=== PATIENT | female | born 1930 | race American Indian/Alaskan Native ===

== ENCOUNTER 2017-06-15 18:29 | Inpatient (IN) | payer MEDICARE ==
[2017-06-15] MEDS: D5NS 1,000 ML IV SCH (21:48)
[2017-06-15 22:15] LABS: Basophils % (Auto) 0.5 % (0.0-1.8); Eosinophils % (Auto) 0.4 % (0.0-4.3); Hematocrit 27.2 % (30.3-42.9); Hemoglobin 9.2 gm/dl (10.1-14.3); Lymphocytes # (Auto) 2.2 K/mm3 (1.2-5.4); Lymphocytes % (Auto) 28.5 % (13.4-35.0); Mean Corpuscular HGB Conc 34 % (30-34); Mean Corpuscular Hemoglobin 31 pg (28-32); Mean Corpuscular Volume 93 fl (79-97); Monocytes # (Auto) 0.7 K/mm3 (0.0-0.8); Monocytes % (Auto) 8.9 % (0.0-7.3); Platelet Count 167 K/mm3 (140-440); Red Blood Count 2.94 M/mm3 (3.65-5.03); Red Cell Distribution Width 14.8 % (13.2-15.2)
[2017-06-15] MEDS ORDERED: MEROPENEM 1000 MG IV SCH (22:15)
--- NOTE | 2017-06-15 22:15 | History and Physical Report ---
History of Present Illness Date of examination: 06/15/17 Date of admission: 06/15/17 18:51 Chief complaint: No Home health in place-unable to take care of the patient History of present illness: KALSKAG:Came back after discharge yesterday because home health was not in place and Daughter does not know how to do tube feedings and take care of sacral wounf including wound vac. Patient is a 87-year-old -[place] female with past medical history significant for strokes 3, hypertension, dementia presented to the emergency department with complaints of ulcer on the sacral area for the last 3-4 months. She took by mouth antibiotics without improvement. Patient has dementia and was not able to give history, history is obtained from her daughter who said the patient was complaining pain from the sacral area, couldn't characterize well. There is also offensive discharge from the wound. Denied fever, chills. 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 Patient was seen and started on emperic antibiotic coverage, WOUND care team saw the patient and discussed with the wound care surgeon who recommended patient be placed on a wound VAC. Wound culture grew ESBL, ID was consulted and they recommended - Wound cx + E coli, ESBL Proteus, MSSA. \Discharged on Merropenem and woung vac+Tube feedings Medications and Allergies Allergies Allergy/AdvReac Type Severity Reaction Status Date / Time Penicillins AdvReac Swelling Verified 06/06/17 21:38 Home Medications Medication Instructions Recorded Confirmed Last Taken Type Crestor 10 mg PO DAILY 06/06/17 06/06/17 Unknown History Klor-Con M10 10 mg PO DAILY 06/06/17 06/06/17 Unknown History Plavix 75 mg PO DAILY 06/06/17 06/06/17 Unknown History Rosuvastatin Calcium 10 mg PO DAILY 06/06/17 06/06/17 Unknown History amLODIPine 10 mg PO DAILY 06/06/17 06/06/17 Unknown History Meropenem [Merrem] 1,000 mg IV Q12HR 42 Days vial 06/13/17 Unknown Rx Active Meds: Active Medications Dextrose/Sodium Chloride (D5ns) 1,000 mls @ 100 mls/hr IV DIRECT [facility] Last Admin: 06/15/17 21:48 Dose: 100 mls/hr Review of Systems All systems: negative Constitutional: weakness, poor appetite, no weight loss, no weight gain, no fever, no chills, no sweats, no night sweats Ears, nose, mouth and throat: no hoarseness, no sore throat, no swelling in mouth Breasts: deferred Cardiovascular: no chest pain, no orthopnea, no palpitations, no rapid/ irregular heart beat, no edema, no syncope, no lightheadedness, no shortness of breath Respiratory: no cough, no cough with sputum, no excessive sputum, no hemoptysis , no shortness of breath, no dyspnea on exertion Gastrointestinal: no abdominal pain, no nausea, no vomiting, no diarrhea, no constipation, no change in bowel habits, no hematemesis, no coffee ground emesis Genitourinary Female: dysuria, urinary frequency, urgency, no pelvic pain Rectal: pain Musculoskeletal: no neck stiffness, no neck pain, no shooting arm pain, no arm numbness/tingling Integumentary: no rash, no pruritis, no redness, no sores Neurological: no seizures, no syncope Psychiatric: no anxiety, no memory loss Endocrine: no cold intolerance, no heat intolerance Hematologic/Lymphatic: no easy bruising, no easy bleeding Allergic/Immunologic: no urticaria, no allergic rhinitis, no wheezing Exam - Constitutional Vitals: Temp Pulse Resp BP Pulse Ox 98.5 F 86 137/73 99 06/15/17 20:27 06/15/17 20:27 06/15/17 20:34 06/15/17 20:27 - Cardiovascular Heart rate: 80 Rhythm: regular - Extremities Extremity abnormal: other (Shreyas stg 4 sacral decub ulcer with foul smelling discharge) Peripheral Pulses: within normal limits - Abdominal General gastrointestinal: Present: soft, non-tender, non-distended, normal bowel sounds - Rectal Rectal Exam: deferred - Integumentary Integumentary: Present: clear, warm, decreased turgor - Musculoskeletal Musculoskeletal: strength equal bilaterally, other (Rt AKA) Results - Labs CBC & Chem 7: 06/16/17 04:00 06/15/17 Unknown Assessment and Plan Assessment and plan: 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 * Wound cx + E coli, ESBL Proteus, MSSA * started merropenem, stopped Vancomyin * PICCWound cx + E coli, ESBL Proteus, MSSA * Placed Wound vac placement. * To make sure home health is in place and functioning after discharge this time UTI * Wound cx + E coli, ESBL Proteus, MSSA * Now on Merrem Hypertension * Blood Pressure is marginally low and held her blood pressure medication Hyperlipidemia * Continue rosuvastatin Moderate Malnutrition * Nutrition consulted * Peg tube, done and patient tolerating peg tube feedings Hypokalemia * Replace and check magnesium Complete immobility due to frailty/right AKA * Fall precautions Flaccid right upper extremity-right hemiparesis * No evidence of fracture * * Hypernatremia IV 1/2 NS DVT prophylxis Advance Directives: Yes (Full code) VTE prophylaxis?: Chemical Plan of care discussed with patient/family: Yes
[2017-06-15] MEDS ORDERED: PERCOCET 5/325 PO PRN (22:16)
[2017-06-15] MEDS ORDERED: DULCOLAX PR PRN (22:16)
[2017-06-15] MEDS ORDERED: DILAUDID IV PRN (22:16)
[2017-06-15] MEDS ORDERED: ZOFRAN IV PRN (22:16)
[2017-06-15] MEDS ORDERED: MILK OF MAGNESIA PO PRN (22:16)
[2017-06-15 22:36] LABS: Alanine Aminotransferase 18 units/L (7-56); Albumin 2.7 g/dL (3.9-5); BUN/Creatinine Ratio 37; Blood Urea Nitrogen 11 mg/dL (7-17); Calcium 7.6 mg/dL (8.4-10.2); Hemolysis Index 3
[2017-06-15] MEDS ORDERED: PEPCID IV SCH (23:00)
[2017-06-16 04:41] LABS: Basophils # (Auto) 0.1 K/mm3 (0.0-0.1); Basophils % (Auto) 1.5 % (0.0-1.8); Eosinophils # (Auto) 0.1 K/mm3 (0.0-0.4); Eosinophils % (Auto) 1.7 % (0.0-4.3); Hematocrit 23.8 % (30.3-42.9); Lymphocytes # (Auto) 2.1 K/mm3 (1.2-5.4); Lymphocytes % (Auto) 36.2 % (13.4-35.0); Mean Corpuscular HGB Conc 34 % (30-34); Mean Corpuscular Hemoglobin 31 pg (28-32); Mean Corpuscular Volume 92 fl (79-97); Monocytes # (Auto) 0.7 K/mm3 (0.0-0.8); Monocytes % (Auto) 11.3 % (0.0-7.3); Platelet Count 155 K/mm3 (140-440); Red Blood Count 2.58 M/mm3 (3.65-5.03); Red Cell Distribution Width 14.7 % (13.2-15.2)
[2017-06-16] MEDS: PEPCID IV SCH ×2 (05:40→10:13)
[2017-06-16] MEDS: MERREM 1,000 MG in NACL 0.9% 100 ML IV SCH ×3 (05:41→22:00)
--- NOTE | 2017-06-16 08:49 | Progress Note ---
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 * Wound cx + E coli, ESBL Proteus, MSSA * started merropenem, stopped Vancomyin * PICCWound cx + E coli, ESBL Proteus, MSSA * Placed Wound vac placement. * To make sure home health is in place and functioning after discharge this time UTI * Wound cx + E coli, ESBL Proteus, MSSA * Now on Merrem Hypertension * Blood Pressure is marginally low and held her blood pressure medication Hyperlipidemia * Continue rosuvastatin Moderate Malnutrition * Nutrition consulted * Peg tube, done and patient tolerating peg tube feedings Hypokalemia * Replace and check magnesium Complete immobility due to frailty/right AKA * Fall precautions Flaccid right upper extremity-right hemiparesis * No evidence of fracture * * Hypernatremia IV 1/2 NS DVT prophylxis Subjective Date of service: 06/16/17 Principal diagnosis: Osteomyelitis, UTI, oropharyngeal dysphagia Interval history: Patient is seen and examined. They quietly in bed. No new complaints. Discussed with patient's nurse Objective - Exam Narrative Exam: Constitutional: Well-nourished well-developed. In no distress Head: Normocephalic atraumatic Eyes: Pupils are equal round and reactive to light Nose: No enlarged turbinates, no septal deviation. Mouth: Moist mucous membranes. Neck: Supple no thyromegaly. No bruit. No JVD Heart: Regular rate and rhythm, S1-S2 abnormal. No rubs murmurs or gallop Lungs: Clear to auscultation bilaterally no rales or rhonchi Abdomen: Soft, nontender. PEG tube in place. Bowel sound are present. Extremities: No edema no cyanosis and no clubbing. Neuro: Alert oriented Oriented x3. No focal sensory or motor deficit. Skin: Has a psychological has also Psychiatry: Euthymic. Calm. - Constitutional Vitals: Vital Signs - 12hr 06/16/17 07:06 Temperature 98.3 F Pulse Rate 81 Blood Pressure 138/75 [Right] General appearance: Present: no acute distress, well-nourished - EENT Eyes: PERRL, EOM intact - Neck Neck: supple, normal ROM - Respiratory Respiratory effort: normal Respiratory: bilateral: CTA - Cardiovascular Rhythm: regular Heart Sounds: Present: S1 & S2. Absent: gallop, rub Extremities: pulses intact, No edema, normal color, Full ROM - Gastrointestinal General gastrointestinal: Present: soft, non-tender, non-distended, normal bowel sounds - Genitourinary Female genitourinary: normal - Integumentary Integumentary: clear, warm, dry - Musculoskeletal Musculoskeletal: 1, strength equal bilaterally - Neurologic Neurologic: moves all extremities - Psychiatric Psychiatric: appropriate mood/affect, intact judgment & insight - Labs CBC & Chem 7: 06/16/17 04:00 06/15/17 Unknown Labs: Abnormal lab results 06/15/17 06/15/17 06/16/17 Range/Units Unknown Unknown 04:00 RBC 2.94 L 2.58 L (3.65-5.03) M/mm3 Hgb 9.2 L 8.0 L (10.1-14.3) gm/dl Hct 27.2 L 23.8 L (30.3-42.9) % Lymph % (Auto) 36.2 H (13.4-35.0) % [place] % (Auto) 8.9 H 11.3 H (0.0-7.3) % Sodium 146 H (137-145) mmol/L Potassium 3.5 L (3.6-5.0) mmol/L Creatinine 0.3 L (0.7-1.2) mg/dL Calcium 7.6 L (8.4-10.2) mg/dL Total Protein 4.7 L (6.3-8.2) g/dL Albumin 2.7 L (3.9-5) g/dL
[2017-06-16] MEDS ORDERED: SODIUM BICARBONATE FEEDTUBE PRN (09:53)
[2017-06-16] MEDS ORDERED: SIMPLE SYRUP FEEDTUBE PRN ×2 (09:53)
[2017-06-16] MEDS ORDERED: PANCREAZE DR 10,500 UNIT FEEDTUBE PRN (09:53)
[2017-06-16] MEDS ORDERED: NON-FORMULARY (Amlodipine 10 MG) PO SCH (10:00)
[2017-06-16] MEDS ORDERED: NON-FORMULARY (Plavix 75 MG) PO SCH (10:00)
[2017-06-16] MEDS: D5NS 1,000 ML IV SCH ×2 (10:13→22:00)
[2017-06-16] MEDS: NORVASC PO SCH (10:13)
[2017-06-16] MEDS: PLAVIX PO SCH (10:13)
--- NOTE | 2017-06-16 16:59 | Consultation ---
History of Present Illness - Reason for Consult Consult date: 06/16/17 stage IV sacral ulcer with osteomyelitis Requesting physician: MADY CHTAMAN - History of Present Illness 87 years old female with history of CVA 3 with right residual hemiplegia, hypertension, dementia, well known to ID due to recent admission found to have sacral osteomyelitis; admitted on 06/06/17-06/14/17 due to non healing sacral decubitus for 3-4 months. She took oral antibiotics without improvement. Patient has dementia and was not able to give history, history is obtained from her daughter who said the patient was complaining pain from the sacral area. 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 Initial white count 10.7. Hemoglobin 9.8. Platelets 237. Urinalysis showed 54 white blood cell without leukocyte esterase. CT of the abdomen show a dilated common bile duct. Wound care evaluated noted 6x4.5x1.5 cm wound with foul-smelling drainage. Evaluated by surgery. No surgical intervation, a wound VAC was placed. On 06/06 wound cx grew E coli, CHANGE MANAGEMENT ANALYST Proteus, MSSA. Patient was treated with meropenem. Pt readmitted on 06/15 in view of lack of family education for home health-home health was not in place and Daughter does not know how to do tube feedings and take care of sacral wound including wound vac. She had PEG placed on 06/14 and a low grade fever after PEG. No fever since then. Microbiology: Wound cultures: 06/06 E coli, CHANGE MANAGEMENT ANALYST Proteus, MSSA Current Antimicrobials: meropenem 06/11 Previous Antimicrobials: vanco levaquin Past History Past Medical History: other (dementia, sacral osteo, ) Past Surgical History: Other (right AKA) Social history: no significant social history, lives with family Family history: no significant family history Medications and Allergies Allergies Allergy/AdvReac Type Severity Reaction Status Date / Time Penicillins AdvReac Swelling Verified 06/06/17 21:38 Home Medications Medication Instructions Recorded Confirmed Last Taken Type Crestor 10 mg PO DAILY 06/06/17 06/06/17 Unknown History Klor-Con M10 10 mg PO DAILY 06/06/17 06/06/17 Unknown History Plavix 75 mg PO DAILY 06/06/17 06/06/17 Unknown History Rosuvastatin Calcium 10 mg PO DAILY 06/06/17 06/06/17 Unknown History amLODIPine 10 mg PO DAILY 06/06/17 06/06/17 Unknown History Meropenem [Merrem] 1,000 mg IV Q12HR 42 Days vial 06/13/17 Unknown Rx Active Meds: Active Medications Acetaminophen (Tylenol) 650 mg PO Q4H PRN PRN Reason: Pain MILD(1-3)/Fever >100.5/QUINTERO Amlodipine Besylate (Norvasc) 10 mg PO DAILY [facility] Last Admin: 06/16/17 10:13 Dose: 10 mg Lipase/Protease/Amylase (Pancreaze Dr 10,500 Unit) 1 each FEEDTUBE PRN PRN PRN Reason: For Clogged Feeding Tube Bisacodyl (Dulcolax) 10 mg CO QDAY PRN PRN Reason: Constipation unrelieved by MOM Clopidogrel Bisulfate (Plavix) 75 mg PO QDAY [facility] Last Admin: 06/16/17 10:13 Dose: 75 mg Famotidine (Pepcid) 20 mg IV DAILY [facility] Last Admin: 06/16/17 10:13 Dose: 20 mg Hydromorphone HCl (Dilaudid) 0.5 mg IV Q3H PRN PRN Reason: Pain , Severe (7-10) Dextrose/Sodium Chloride (D5ns) 1,000 mls @ 100 mls/hr IV DIRECT [facility] Last Admin: 06/16/17 10:13 Dose: 100 mls/hr Meropenem 1,000 mg/ Sodium (Chloride) 100 mls @ 100 mls/hr IV Q12HR [facility] Last Admin: 06/16/17 10:54 Dose: 100 mls/hr Magnesium Hydroxide (Milk Of Magnesia) 30 ml PO Q4H PRN PRN Reason: Constipation Morphine Sulfate (Morphine) 2 mg IV Q4H PRN PRN Reason: Pain, Moderate (4-6) Ondansetron HCl (Zofran) 4 mg IV Q8H PRN PRN Reason: N/V unrelieved by Reglan Oxycodone/Acetaminophen (Percocet 5/325) 1 tab PO Q6H PRN PRN Reason: Pain, Moderate (4-6) Potassium Chloride (K-Dur) 40 meq PO ONCE ONE Stop: 06/16/17 16:52 Simple Syrup (Simple Syrup) 15 ml FEEDTUBE PRN PRN PRN Reason: Hypoglycemia Simple Syrup (Simple Syrup) 30 ml FEEDTUBE PRN PRN PRN Reason: Hypoglycemia Sodium Bicarbonate (Sodium Bicarbonate) 325 mg FEEDTUBE PRN PRN PRN Reason: For Clogged Feeding Tube Review of Systems ROS unobtainable: due to mental status Physical Examination - Physical Exam Narrative exam: General appearance: Alert in NAD Eyes: anicteric sclerae, moist conjunctivae; no lid-lag; PERRLA HENT: Atraumatic; oropharynx clear Neck: Trachea midline Lungs: CTA CV: RRR, no murmurs Abdomen: Soft, non-tender;+PEG Extremities: right AKA Skin: stage IV sacral with foul smelling, right toe superficial sores no purulence Psych: non verbal. Neuro: alert non verbal +right hemiplegia Lines: left PICC - Constitutional Vitals: Vital Signs Temp Pulse Resp BP Pulse Ox 98.5 F 74 20 116/53 97 06/16/17 08:06 06/16/17 10:13 06/16/17 08:06 06/16/17 10:13 06/16/17 08:06 Temperature -Last 24 Hours Temperature 98.5 F Temperature 98.3 F Temperature 98.5 F Results - Labs CBC & Chem 7: 06/16/17 04:00 06/15/17 Unknown Labs: Abnormal lab results 06/15/17 06/15/17 06/16/17 Range/Units Unknown Unknown 04:00 RBC 2.94 L 2.58 L (3.65-5.03) M/mm3 Hgb 9.2 L 8.0 L (10.1-14.3) gm/dl Hct 27.2 L 23.8 L (30.3-42.9) % Lymph % (Auto) 36.2 H (13.4-35.0) % [place] % (Auto) 8.9 H 11.3 H (0.0-7.3) % Sodium 146 H (137-145) mmol/L Potassium 3.5 L (3.6-5.0) mmol/L Creatinine 0.3 L (0.7-1.2) mg/dL POC Glucose (70-105) Calcium 7.6 L (8.4-10.2) mg/dL Total Protein 4.7 L (6.3-8.2) g/dL Albumin 2.7 L (3.9-5) g/dL 06/16/17 Range/Units 11:40 RBC (3.65-5.03) M/mm3 Hgb (10.1-14.3) gm/dl Hct (30.3-42.9) % Lymph % (Auto) (13.4-35.0) % [place] % (Auto) (0.0-7.3) % Sodium (137-145) mmol/L Potassium (3.6-5.0) mmol/L Creatinine (0.7-1.2) mg/dL POC Glucose 106 H (70-105) Calcium (8.4-10.2) mg/dL Total Protein (6.3-8.2) g/dL Albumin (3.9-5) g/dL Assessment and Plan Assessment: 1) 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 7) Dysphagia s/p PEG placement Plan: -continue meropenem - close monitor -contact isolation -Continue ertapenem 1 g iv daily for 6 weeks until 07/23 via codie alaniz/Vidal -wound consult will sign off Marisa Martel
[2017-06-16] MEDS ORDERED: K-DUR PO ONE (18:00)
[2017-06-17 04:24] LABS: Basophils # (Auto) 0.1 K/mm3 (0.0-0.1); Basophils % (Auto) 0.9 % (0.0-1.8); Eosinophils # (Auto) 0.1 K/mm3 (0.0-0.4); Eosinophils % (Auto) 1.6 % (0.0-4.3); Hemoglobin 9.4 gm/dl (10.1-14.3); Lymphocytes # (Auto) 2.4 K/mm3 (1.2-5.4); Lymphocytes % (Auto) 39.3 % (13.4-35.0); Mean Corpuscular HGB Conc 34 % (30-34); Mean Corpuscular Hemoglobin 31 pg (28-32); Mean Corpuscular Volume 93 fl (79-97); Monocytes # (Auto) 0.6 K/mm3 (0.0-0.8); Platelet Count 176 K/mm3 (140-440); Red Blood Count 3.02 M/mm3 (3.65-5.03); Red Cell Distribution Width 14.9 % (13.2-15.2)
[2017-06-17 06:29] LABS: Alanine Aminotransferase 16 units/L (7-56); Albumin 2.5 g/dL (3.9-5); BUN/Creatinine Ratio 27; Blood Urea Nitrogen 8 mg/dL (7-17); Calcium 8.4 mg/dL (8.4-10.2); Hemolysis Index 36
[2017-06-17] MEDS: MERREM 1,000 MG in NACL 0.9% 100 ML IV SCH ×2 (10:52→21:42)
[2017-06-17] MEDS: NORVASC PO SCH (10:53)
[2017-06-17] MEDS: PLAVIX PO SCH (10:53)
[2017-06-17] MEDS: PEPCID IV SCH (11:25)
--- NOTE | 2017-06-17 11:43 | Progress Note ---
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 * Wound cx + E coli, ESBL Proteus, MSSA * started merropenem, stopped Vancomyin * PICCWound cx + E coli, ESBL Proteus, MSSA * Placed Wound vac placement. * To make sure home health is in place and functioning after discharge this time UTI * Wound cx + E coli, ESBL Proteus, MSSA * Now on Merrem Hypertension * Blood Pressure is marginally low and held her blood pressure medication Hyperlipidemia * Continue rosuvastatin Moderate Malnutrition * Nutrition consulted * Peg tube, done and patient tolerating peg tube feedings Hypokalemia * Replace and check magnesium Complete immobility due to frailty/right AKA * Fall precautions Flaccid right upper extremity-right hemiparesis * No evidence of fracture * * Hypernatremia IV 1/2 NS DVT prophylxis with lovenox Discussed with pt's daughter who is concerned about placement Subjective Date of service: 06/17/17 Principal diagnosis: Osteomyelitis, UTI, oropharyngeal dysphagia Interval history: Patient is seen and examined. They quietly in bed. No new complaints. Discussed with patient's nurse. Objective - Exam Narrative Exam: Constitutional: Minimally verbal Head: Normocephalic atraumatic Eyes: Pupils are equal round and reactive to light Nose: No enlarged turbinates, no septal deviation. Mouth: Moist mucous membranes. Neck: Supple no thyromegaly. No bruit. No JVD Heart: Regular rate and rhythm, S1-S2 abnormal. No rubs murmurs or gallop Lungs: Clear to auscultation bilaterally no rales or rhonchi Abdomen: Soft, nontender. PEG tube in place. Bowel sound are present. Extremities: No edema no cyanosis and no clubbing. Neuro: Alert oriented Oriented x1. . Skin: Has a sacral decubitous ulcer Psychiatry: Euthymic. Calm. - Constitutional Vitals: Vital Signs - 12hr 06/17/17 06/17/17 09:16 10:53 Temperature 98.7 F Pulse Rate 72 72 Respiratory 18 Rate Blood Pressure 115/46 115/46 O2 Sat by Pulse 98 Oximetry - Labs CBC & Chem 7: 06/17/17 04:12 06/17/17 04:12 Labs: Abnormal lab results 0206/16/17 06/17/17 Range/Units 11:40 18:22 01:16 RBC (3.65-5.03) M/mm3 Hgb (10.1-14.3) gm/dl Hct (30.3-42.9) % Lymph % (Auto) (13.4-35.0) % [place] % (Auto) (0.0-7.3) % Sodium (137-145) mmol/L Chloride (98-107) mmol/L Creatinine (0.7-1.2) mg/dL Glucose (65-100) mg/dL POC Glucose 106 H 126 H 139 H (70-105) Total Protein (6.3-8.2) g/dL Albumin (3.9-5) g/dL 06/17/17 06/17/17 06/17/17 Range/Units 04:12 04:12 05:37 RBC 3.02 L (3.65-5.03) M/mm3 Hgb 9.4 L (10.1-14.3) gm/dl Hct 28.0 L (30.3-42.9) % Lymph % (Auto) 39.3 H (13.4-35.0) % [place] % (Auto) 10.0 H (0.0-7.3) % Sodium 146 H (137-145) mmol/L Chloride 109.6 H (98-107) mmol/L Creatinine 0.3 L (0.7-1.2) mg/dL Glucose 152 H (65-100) mg/dL POC Glucose 139 H (70-105) Total Protein 5.0 L (6.3-8.2) g/dL Albumin 2.5 L (3.9-5) g/dL
[2017-06-17] MEDS: D5NS 1,000 ML IV SCH (15:00)
[2017-06-18] MEDS: D5NS 1,000 ML IV SCH ×2 (01:14→20:02)
[2017-06-18 05:10] LABS: Basophils % (Auto) 0.5 % (0.0-1.8); Eosinophils # (Auto) 0.1 K/mm3 (0.0-0.4); Eosinophils % (Auto) 1.8 % (0.0-4.3); Hematocrit 26.9 % (30.3-42.9); Hemoglobin 9.2 gm/dl (10.1-14.3); Lymphocytes # (Auto) 2.3 K/mm3 (1.2-5.4); Mean Corpuscular HGB Conc 34 % (30-34); Mean Corpuscular Hemoglobin 31 pg (28-32); Mean Corpuscular Volume 92 fl (79-97); Monocytes # (Auto) 0.7 K/mm3 (0.0-0.8); Platelet Count 177 K/mm3 (140-440); Red Blood Count 2.94 M/mm3 (3.65-5.03); Red Cell Distribution Width 14.8 % (13.2-15.2)
[2017-06-18 05:30] LABS: Alanine Aminotransferase 14 units/L (7-56); Albumin 2.4 g/dL (3.9-5); BUN/Creatinine Ratio 33; Blood Urea Nitrogen 10 mg/dL (7-17); Calcium 8.3 mg/dL (8.4-10.2); Hemolysis Index 2
--- NOTE | 2017-06-18 07:41 | Progress Note ---
Assessment and Plan Assessment and plan: 87 years old female with history of CVA 3 with right residual hemiplegia, hypertension, dementia, recently discharged from the hospital after an admission for sacral osteomyelitis on 06/06/17-06/14/17 due to non healing sacral decubitus for 3-4 months. She had taken oral antibiotics without improvement. Patient has dementia and was not able to give history, history is obtained from her daughter who said the patient was complaining pain from the sacral area. 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 Wound care evaluated noted 6x4.5x1.5 cm wound with foul-smelling drainage. Evaluated by surgery. No surgical intervation, a wound VAC was placed. On 06/06 wound cx grew E coli, DRESSING ROOM PORTER Proteus, MSSA. Patient was treated with meropenem. Pt readmitted on 06/15 in view of lack of family education for home health-home health was not in place and Daughter does not know how to do tube feedings and take care of sacral wound including wound vac. According to case management documentation the patient's daughter refused home health from coming into her home She had PEG placed on 06/14 and a low grade fever after PEG. 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 * S/P bedside debridement. Wound cx + E coli, DRESSING ROOM PORTER Proteus, MSSA * Continue merropenem, - * Wound Vac in Place, Picc Line placed 06/11 * Isolation Hypertension * Blood Pressure is marginally low and held her blood pressure medication Hyperlipidemia * Continue rosuvastatin Severe Protien Calorie Malnutrition * Nutrition consulted * Peg tube, done and patient tolerating peg tube feedings Hypokalemia * Replace and check magnesium Complete immobility due to frailty/right AKA * Fall precautions Flaccid right upper extremity-right hemiparesis Hx of CVA X3 * No evidence of fracture Dysphagia * S/P PEG placement Hypernatremia * Free water DVT prophylxis with lovenox Speech eval in a.m. Await home health physician prior to discharge. Plan of care discussed in detail with the daughter. History Interval history: Patient seen and examined and noted to distress resting comfortably dissected bedside. Still awaiting decision about home health. Hospitalist Physical - Physical exam Narrative exam: Narrative exam: VITAL SIGNS: Reviewed. GENERAL: The patient appeared well-developed otherwise chronically ill appearing. vital signs as documented. HEAD: No signs of head trauma. EYES: Pupils are equal. Extraocular motions intact. EARS: Hearing grossly intact. MOUTH: Oropharynx is normal. NECK: No adenopathy, no JVD. CHEST: Chest with clear breath sounds bilaterally. No wheezes, rales, or rhonchi. CARDIAC: Regular rate and rhythm. S1 and S2, without murmurs, gallops, or rubs. VASCULAR: Peripheral pulses normal and equal in all extremities. ABDOMEN: Soft, without detectable tenderness. PEG tube in place no tenderness at site. No sign of distention. No rebound or guarding, and no masses palpated. Bowel Sounds normal. MUSCULOSKELETAL: Limited range of motion on the right upper extremity flaccid in appearance. Extremities without clubbing, cyanosis. Trace edema on the upper extremity.right toe superficial sores no purulence NEUROLOGIC EXAM: Alert oriented to person self. Right hemiparesis. Very muffled speech chronic. Follows some commands. PSYCHIATRIC: Mood normal. SKIN: Sacral pressure ulcer stage 4 with bone exposure- WOUND VAC IN PLACE. Left PICC line in place - Constitutional Vitals: Temp Pulse Resp BP Pulse Ox 99.0 F 78 21 108/51 97 06/17/17 19:53 06/17/17 19:53 06/17/17 22:00 06/17/17 19:53 06/17/17 22:00 General appearance: Present: no acute distress, well-nourished Results - Labs CBC & Chem 7: 06/18/17 04:50 06/18/17 04:50 Labs: Laboratory Last Values WBC 6.3 K/mm3 (4.5-11.0) 06/18/17 04:50 RBC 2.94 M/mm3 (3.65-5.03) L 06/18/17 04:50 Hgb 9.2 gm/dl (10.1-14.3) L 06/18/17 04:50 Hct 26.9 % (30.3-42.9) L 06/18/17 04:50 MCV 92 fl (79-97) 06/18/17 04:50 MCH 31 pg (28-32) 06/18/17 04:50 MCHC 34 % (30-34) 06/18/17 04:50 RDW 14.8 % (13.2-15.2) 06/18/17 04:50 Plt Count 177 K/mm3 (140-440) 06/18/17 04:50 Lymph % (Auto) 36.0 % (13.4-35.0) H 06/18/17 04:50 [place] % (Auto) 11.0 % (0.0-7.3) H 06/18/17 04:50 Eos % (Auto) 1.8 % (0.0-4.3) 06/18/17 04:50 Baso % (Auto) 0.5 % (0.0-1.8) 06/18/17 04:50 Lymph # 2.3 K/mm3 (1.2-5.4) 06/18/17 04:50 [place] # 0.7 K/mm3 (0.0-0.8) 06/18/17 04:50 Eos # 0.1 K/mm3 (0.0-0.4) 06/18/17 04:50 Baso # 0.0 K/mm3 (0.0-0.1) 06/18/17 04:50 Seg Neutrophils % 50.7 % (40.0-70.0) 06/18/17 04:50 Seg Neutrophils # 3.2 K/mm3 (1.8-7.7) 06/18/17 04:50 Sodium 147 mmol/L (137-145) H 06/18/17 04:50 Potassium 3.9 mmol/L (3.6-5.0) 06/18/17 04:50 Chloride 109.4 mmol/L (98-107) H 06/18/17 04:50 Carbon Dioxide 27 mmol/L (22-30) 06/18/17 04:50 Anion Gap 15 mmol/L 06/18/17 04:50 BUN 10 mg/dL (7-17) 06/18/17 04:50 Creatinine 0.3 mg/dL (0.7-1.2) L 06/18/17 04:50 Estimated GFR > 60 ml/min 06/18/17 04:50 BUN/Creatinine Ratio 33 % 06/18/17 04:50 Glucose 133 mg/dL (65-100) H 06/18/17 04:50 POC Glucose 142 (70-105) H 06/18/17 06:07 Hemoglobin A1c 4.9 % (4-6) 06/15/17 Unknown Calcium 8.3 mg/dL (8.4-10.2) L 06/18/17 04:50 Total Bilirubin 0.20 mg/dL (0.1-1.2) 06/18/17 04:50 AST 19 units/L (5-40) 06/18/17 04:50 ALT 14 units/L (7-56) 06/18/17 04:50 Alkaline Phosphatase 58 units/L (35-129) 06/18/17 04:50 Total Protein 4.8 g/dL (6.3-8.2) L 06/18/17 04:50 Albumin 2.4 g/dL (3.9-5) L 06/18/17 04:50 Albumin/Globulin Ratio 1.0 % 06/18/17 04:50
--- NOTE | 2017-06-18 07:56 | Discharge Summary ---
Providers - Providers Date of Admission: 06/15/17 18:51 Attending physician: GAVIN PERDOMO MD 06/15/17 22:16 Consult to Physician [CONS] Routine Consulting Provider: JENN SARAVIA Reason For Exam: Sacral decubitus ulcer Place consult to:: dr. shirley Notified:: yes Phone number called:: [phone] If yes, spoke with:: answering machine Time called:: 08:39 Comment:: vanita/ left message 06/15/17 22:21 Consult to Case Management [CONS] Routine Services Needed at Discharge: Home Health Services Social Worker Assistant Notified:: franci Time called:: 09:26 Comment:: vanita Consult to Dietitian/Nutrition [CONS] Routine Physician Instructions: Reason For Exam: pEG TUBE FEEDING Reason for Consult: Pt needs oral supplement Consult to Wound/ET Nurse [CONS] Routine Reason For Exam: wound eval Primary care physician: LINDSEY SHAW Hospitalization Reason for admission: sepsis Hospital course: 87 years old female with history of CVA 3 with right residual hemiplegia, hypertension, dementia, recently discharged from the hospital after an admission for sacral osteomyelitis on 06/06/17-06/14/17 due to non healing sacral decubitus for 3-4 months. She had taken oral antibiotics without improvement. Patient has dementia and was not able to give history, history is obtained from her daughter who said the patient was complaining pain from the sacral area. 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 Wound care evaluated noted 6x4.5x1.5 cm wound with foul-smelling drainage. Evaluated by surgery. No surgical intervation, a wound VAC was placed. On 06/06 wound cx grew E coli, ARCHITECTURAL JOB CAPTAIN Proteus, MSSA. Patient was treated with meropenem. Pt readmitted on 06/15 in view of lack of family education for home health-home health was not in place and Daughter does not know how to do tube feedings and take care of sacral wound including wound vac. According to case management documentation the patient's daughter refused home health from coming into her home She had PEG placed on 06/14 and a low grade fever after PEG. 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 * S/P bedside debridement. Wound cx + E coli, ARCHITECTURAL JOB CAPTAIN Proteus, MSSA * Continue merropenem, - * Wound Vac in Place, Picc Line placed 06/11 * Isolation Hypertension * Blood Pressure is marginally low and held her blood pressure medication Hyperlipidemia * Continue rosuvastatin Severe Protien Calorie Malnutrition * Nutrition consulted * Peg tube, done and patient tolerating peg tube feedings Hypokalemia * Replace and check magnesium Complete immobility due to frailty/right AKA * Fall precautions Flaccid right upper extremity-right hemiparesis Hx of CVA X3 * No evidence of fracture Dysphagia * S/P PEG placement Hypernatremia * Free water Will discharge once patients family are comfortable with home health, otherwise placement is appropriate. Core Measure Documentation - Palliative Care Palliative Care/ Comfort Measures: Not Applicable - Core Measures Any of the following diagnoses?: none - VTE Discharge Requirements Deep Vein Thrombosis/Pulmonary Embolism Present on Admission: No Exam - Physical Exam Narrative exam: Narrative exam: VITAL SIGNS: Reviewed. GENERAL: The patient appeared well-developed otherwise chronically ill appearing. vital signs as documented. HEAD: No signs of head trauma. EYES: Pupils are equal. Extraocular motions intact. EARS: Hearing grossly intact. MOUTH: Oropharynx is normal. NECK: No adenopathy, no JVD. CHEST: Chest with clear breath sounds bilaterally. No wheezes, rales, or rhonchi. CARDIAC: Regular rate and rhythm. S1 and S2, without murmurs, gallops, or rubs. VASCULAR: Peripheral pulses normal and equal in all extremities. ABDOMEN: Soft, without detectable tenderness. PEG tube in place no tenderness at site. No sign of distention. No rebound or guarding, and no masses palpated. Bowel Sounds normal. MUSCULOSKELETAL: Limited range of motion on the right upper extremity flaccid in appearance. Extremities without clubbing, cyanosis. Trace edema on the upper extremity.right toe superficial sores no purulence NEUROLOGIC EXAM: Alert oriented to person self. Right hemiparesis. Very muffled speech chronic. Follows some commands. PSYCHIATRIC: Mood normal. SKIN: Sacral pressure ulcer stage 4 with bone exposure- WOUND VAC IN PLACE. Left PICC line in place - Constitutional Vitals: Temp Pulse Resp BP Pulse Ox 99.0 F 78 21 108/51 97 06/17/17 19:53 06/17/17 19:53 06/17/17 22:00 06/17/17 19:53 06/17/17 22:00 Plan Activity: advance as tolerated, fall precautions Diet: per dietitian instruction Special Instructions: record daily BP diary, record blood sugar diary, smoking cessation Follow up with: LINDSEY SHAW MD [Primary Care Provider] - 7 Days JENN SARAVIA MD [Staff Physician] - 7 Days Prescriptions: Morphine Concentrate [Roxanol Concentrate] 10 mg PO Q6H PRN 3 Days oralsyr PRN Reason: Pain
[2017-06-18] MEDS: PEPCID PO SCH (10:59)
[2017-06-18] MEDS: PLAVIX PO SCH (10:59)
[2017-06-18] MEDS: NORVASC PO SCH (10:59)
[2017-06-18] MEDS: MERREM 1,000 MG in NACL 0.9% 100 ML IV SCH ×2 (11:00→23:00)
[2017-06-19] MEDS: MORPHINE IV PRN (00:07)
[2017-06-19 04:51] LABS: Basophils % (Auto) 0.4 % (0.0-1.8); Eosinophils # (Auto) 0.1 K/mm3 (0.0-0.4); Eosinophils % (Auto) 2.3 % (0.0-4.3); Hematocrit 25.6 % (30.3-42.9); Hemoglobin 8.8 gm/dl (10.1-14.3); Lymphocytes # (Auto) 2.1 K/mm3 (1.2-5.4); Lymphocytes % (Auto) 33.4 % (13.4-35.0); Mean Corpuscular HGB Conc 35 % (30-34); Mean Corpuscular Hemoglobin 32 pg (28-32); Mean Corpuscular Volume 94 fl (79-97); Monocytes # (Auto) 0.7 K/mm3 (0.0-0.8); Monocytes % (Auto) 10.5 % (0.0-7.3); Platelet Count 171 K/mm3 (140-440); Red Blood Count 2.73 M/mm3 (3.65-5.03)
[2017-06-19 05:10] LABS: Alanine Aminotransferase 15 units/L (7-56); Albumin 2.6 g/dL (3.9-5); BUN/Creatinine Ratio 37; Blood Urea Nitrogen 11 mg/dL (7-17); Calcium 8.2 mg/dL (8.4-10.2); Hemolysis Index 4
[2017-06-19] MEDS: MERREM 1,000 MG in NACL 0.9% 100 ML IV SCH ×2 (10:35→22:38)
[2017-06-19] MEDS: PEPCID PO SCH (11:35)
[2017-06-19] MEDS: PLAVIX PO SCH (11:35)
[2017-06-19] MEDS: NORVASC PO SCH (11:36)
--- NOTE | 2017-06-19 20:29 | Progress Note ---
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 * Wound cx + E coli, ESBL Proteus, MSSA * started merropenem, stopped Vancomyin * PICCWound cx + E coli, ESBL Proteus, MSSA * Placed Wound vac placement. * To make sure home health is in place and functioning after discharge this time UTI * Wound cx + E coli, ESBL Proteus, MSSA * Now on Merrem Hypertension * Blood Pressure is marginally low and held her blood pressure medication Hyperlipidemia * Continue rosuvastatin Moderate Malnutrition * Nutrition consulted * Peg tube, done and patient tolerating peg tube feedings Hypokalemia * Replace and check magnesium Complete immobility due to frailty/right AKA * Fall precautions Flaccid right upper extremity-right hemiparesis * No evidence of fracture * * Hypernatremia IV 1/2 NS DVT prophylxis with [employer] web manager arranging for feeding tube in hospital bed per daughter's request. Upper data elevated from the insurance carriers Subjective Date of service: 06/19/17 Principal diagnosis: Osteomyelitis, UTI, oropharyngeal dysphagia Interval history: Patient is seen and examined. They quietly in bed. No new complaints. Discussed with patient's nurse. Objective - Exam Narrative Exam: Constitutional: Minimally verbal Head: Normocephalic atraumatic Eyes: Pupils are equal round and reactive to light Nose: No enlarged turbinates, no septal deviation. Mouth: Moist mucous membranes. Neck: Supple no thyromegaly. No bruit. No JVD Heart: Regular rate and rhythm, S1-S2 abnormal. No rubs murmurs or gallop Lungs: Clear to auscultation bilaterally no rales or rhonchi Abdomen: Soft, nontender. PEG tube in place. Bowel sound are present. Extremities: No edema no cyanosis and no clubbing. Neuro: Alert oriented Oriented x1. . Skin: Has a sacral decubitous ulcer Psychiatry: Euthymic. Calm. - Constitutional Vitals: Vital Signs - 12hr 06/19/17 16:00 Temperature 99.2 F Pulse Rate 86 Respiratory 18 Rate Blood Pressure 113/49 [Right] O2 Sat by Pulse 98 Oximetry - Labs CBC & Chem 7: 06/19/17 04:27 06/19/17 04:27 Labs: Abnormal lab results 06/19/17 06/19/17 06/19/17 Range/Units 04:27 04:27 06:54 RBC 2.73 L (3.65-5.03) M/mm3 Hgb 8.8 L (10.1-14.3) gm/dl Hct 25.6 L (30.3-42.9) % MCHC 35 H (30-34) % [place] % (Auto) 10.5 H (0.0-7.3) % Chloride 107.4 H (98-107) mmol/L Creatinine 0.3 L (0.7-1.2) mg/dL Glucose 122 H (65-100) mg/dL POC Glucose 127 H (70-105) Calcium 8.2 L (8.4-10.2) mg/dL Total Protein 4.4 L (6.3-8.2) g/dL Albumin 2.6 L (3.9-5) g/dL 06/19/17 Range/Units 11:30 RBC (3.65-5.03) M/mm3 Hgb (10.1-14.3) gm/dl Hct (30.3-42.9) % MCHC (30-34) % [place] % (Auto) (0.0-7.3) % Chloride (98-107) mmol/L Creatinine (0.7-1.2) mg/dL Glucose (65-100) mg/dL POC Glucose 138 H (70-105) Calcium (8.4-10.2) mg/dL Total Protein (6.3-8.2) g/dL Albumin (3.9-5) g/dL
[2017-06-20] MEDS: D5NS 1,000 ML IV SCH ×2 (05:24→17:53)
[2017-06-20] MEDS: MERREM 1,000 MG in NACL 0.9% 100 ML IV SCH ×2 (10:00→21:29)
[2017-06-20] MEDS: PLAVIX PO SCH (10:03)
[2017-06-20] MEDS: PEPCID PO SCH (10:03)
[2017-06-20] MEDS: NORVASC PO SCH (10:04)
--- NOTE | 2017-06-20 15:06 | Progress Note ---
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 * Wound cx + E coli, ESBL Proteus, MSSA * started merropenem, stopped Vancomyin * PICCWound cx + E coli, ESBL Proteus, MSSA * Placed Wound vac placement. * To make sure home health is in place and functioning after discharge this time UTI * Wound cx + E coli, ESBL Proteus, MSSA * Now on Merrem Hypertension * Blood Pressure is marginally low and held her blood pressure medication Hyperlipidemia * Continue rosuvastatin Moderate Malnutrition * Nutrition consulted * Peg tube, done and patient tolerating peg tube feedings Hypokalemia * Replace and check magnesium Complete immobility due to frailty/right AKA * Fall precautions Flaccid right upper extremity-right hemiparesis * No evidence of fracture * * Hypernatremia IV 1/2 NS DVT prophylxis with lovenox History Interval history: Patient seen and examined. No new events overnight. Labs and nursing notes reviewed Hospitalist Physical - Constitutional Vitals: Temp Pulse Resp BP Pulse Ox 98.9 F 81 18 116/54 98 06/20/17 07:44 06/20/17 10:04 06/20/17 07:44 06/20/17 10:04 06/20/17 10:00 General appearance: Present: no acute distress, well-nourished - EENT Eyes: Present: PERRL, EOM intact ENT: hearing intact, clear oral mucosa, edentulous - Neck Neck: Present: supple, normal ROM - Respiratory Respiratory effort: normal Respiratory: bilateral: CTA - Cardiovascular Rhythm: regular Heart Sounds: Present: S1 & S2 - Extremities Extremities: no ischemia, No edema - Abdominal General gastrointestinal: soft, non-tender, non-distended - Integumentary Integumentary: Present: clear, warm, dry - Psychiatric Psychiatric: appropriate mood/affect, cooperative - Neurologic Neurologic: CNII-XII intact, moves all extremities - Allied Health Allied health notes reviewed: nursing Results - Labs CBC & Chem 7: 06/19/17 04:27 06/19/17 04:27 Labs: Laboratory Last Values WBC 6.3 K/mm3 (4.5-11.0) 06/19/17 04:27 RBC 2.73 M/mm3 (3.65-5.03) L 06/19/17 04:27 Hgb 8.8 gm/dl (10.1-14.3) L 06/19/17 04:27 Hct 25.6 % (30.3-42.9) L 06/19/17 04:27 MCV 94 fl (79-97) 06/19/17 04:27 MCH 32 pg (28-32) 06/19/17 04:27 MCHC 35 % (30-34) H 06/19/17 04:27 RDW 15.0 % (13.2-15.2) 06/19/17 04:27 Plt Count 171 K/mm3 (140-440) 06/19/17 04:27 Lymph % (Auto) 33.4 % (13.4-35.0) 06/19/17 04:27 [place] % (Auto) 10.5 % (0.0-7.3) H 06/19/17 04:27 Eos % (Auto) 2.3 % (0.0-4.3) 06/19/17 04:27 Baso % (Auto) 0.4 % (0.0-1.8) 06/19/17 04:27 Lymph # 2.1 K/mm3 (1.2-5.4) 06/19/17 04:27 [place] # 0.7 K/mm3 (0.0-0.8) 06/19/17 04:27 Eos # 0.1 K/mm3 (0.0-0.4) 06/19/17 04:27 Baso # 0.0 K/mm3 (0.0-0.1) 06/19/17 04:27 Seg Neutrophils % 53.4 % (40.0-70.0) 06/19/17 04:27 Seg Neutrophils # 3.3 K/mm3 (1.8-7.7) 06/19/17 04:27 Sodium 139 mmol/L (137-145) D 06/19/17 04:27 Potassium 3.9 mmol/L (3.6-5.0) 06/19/17 04:27 Chloride 107.4 mmol/L (98-107) H 06/19/17 04:27 Carbon Dioxide 28 mmol/L (22-30) 06/19/17 04:27 Anion Gap 8 mmol/L 06/19/17 04:27 BUN 11 mg/dL (7-17) 06/19/17 04:27 Creatinine 0.3 mg/dL (0.7-1.2) L 06/19/17 04:27 Estimated GFR > 60 ml/min 06/19/17 04:27 BUN/Creatinine Ratio 37 % 06/19/17 04:27 Glucose 122 mg/dL (65-100) H 06/19/17 04:27 POC Glucose 140 (70-105) H 06/20/17 12:04 Hemoglobin A1c 4.9 % (4-6) 06/15/17 Unknown Calcium 8.2 mg/dL (8.4-10.2) L 06/19/17 04:27 Total Bilirubin 0.20 mg/dL (0.1-1.2) 06/19/17 04:27 AST 17 units/L (5-40) 06/19/17 04:27 ALT 15 units/L (7-56) 06/19/17 04:27 Alkaline Phosphatase 55 units/L (35-129) 06/19/17 04:27 Total Protein 4.4 g/dL (6.3-8.2) L 06/19/17 04:27 Albumin 2.6 g/dL (3.9-5) L 06/19/17 04:27 Albumin/Globulin Ratio 1.4 % 06/19/17 04:27 <ROSAMARIA MCGOWAN M - Last Filed: 06/23/17 20:41> Assessment and Plan Assessment and plan: I saw and evaluated the patient. I agree with the findings and the plan of care as documented in the mid-level Practitioner's~note, with the following corrections and additions. patient is stable for dc, but daughter has appealed continue meropenam will be dc on ertapenam to complete 6 weeks of rx History Interval history: no cp, no sob, no vomiting, no agitation, no fever Hospitalist Physical - Constitutional Vitals: Temp Pulse Resp BP Pulse Ox 98.6 F 87 20 122/41 97 06/23/17 07:13 06/23/17 15:24 06/23/17 07:13 06/23/17 15:25 06/23/17 15:24 - Integumentary Integumentary: Present: warm (stage 3 sacral ulcer, stage 2 proximal sacral ulcer, and eschar to left toes, unstageable) - Psychiatric Psychiatric: no intact judgment & insight (oriented to self only, pleasantly demented) Results - Labs CBC & Chem 7: 06/19/17 04:27 06/19/17 04:27 Labs: Laboratory Last Values WBC 6.3 K/mm3 (4.5-11.0) 06/19/17 04:27 RBC 2.73 M/mm3 (3.65-5.03) L 06/19/17 04:27 Hgb 8.8 gm/dl (10.1-14.3) L 06/19/17 04:27 Hct 25.6 % (30.3-42.9) L 06/19/17 04:27 MCV 94 fl (79-97) 06/19/17 04: MCH 32 pg (28-32) 06/19/17 04: MCHC 35 % (30-34) H 06/19/17 04:27 RDW 15.0 % (13.2-15.2) 06/19/17 04:27 Plt Count 171 K/mm3 (140-440) 06/19/17 04:27 Lymph % (Auto) 33.4 % (13.4-35.0) 06/19/17 04:27 [place] % (Auto) 10.5 % (0.0-7.3) H 06/19/17 04:27 Eos % (Auto) 2.3 % (0.0-4.3) 06/19/17 04:27 Baso % (Auto) 0.4 % (0.0-1.8) 06/19/17 04:27 Lymph # 2.1 K/mm3 (1.2-5.4) 06/19/17 04:27 [place] # 0.7 K/mm3 (0.0-0.8) 06/19/17 04:27 Eos # 0.1 K/mm3 (0.0-0.4) 06/19/17 04:27 Baso # 0.0 K/mm3 (0.0-0.1) 06/19/17 04:27 Seg Neutrophils % 53.4 % (40.0-70.0) 06/19/17 04:27 Seg Neutrophils # 3.3 K/mm3 (1.8-7.7) 06/19/17 04:27 Sodium 139 mmol/L (137-145) D 06/19/17 04:27 Potassium 3.9 mmol/L (3.6-5.0) 06/19/17 04:27 Chloride 107.4 mmol/L (98-107) H 06/19/17 04:27 Carbon Dioxide 28 mmol/L (22-30) 06/19/17 04:27 Anion Gap 8 mmol/L 06/19/17 04:27 BUN 11 mg/dL (7-17) 06/19/17 04:27 Creatinine 0.3 mg/dL (0.7-1.2) L 06/19/17 04:27 Estimated GFR > 60 ml/min 06/19/17 04:27 BUN/Creatinine Ratio 37 % 06/19/17 04:27 Glucose 122 mg/dL (65-100) H 06/19/17 04:27 POC Glucose 151 (70-105) H 06/23/17 18:40 Hemoglobin A1c 4.9 % (4-6) 06/15/17 Unknown Calcium 8.2 mg/dL (8.4-10.2) L 06/19/17 04:27 Total Bilirubin 0.20 mg/dL (0.1-1.2) 06/19/17 04:27 AST 17 units/L (5-40) 06/19/17 04:27 ALT 15 units/L (7-56) 06/19/17 04:27 Alkaline Phosphatase 55 units/L (35-129) 06/19/17 04:27 Total Protein 4.4 g/dL (6.3-8.2) L 06/19/17 04:27 Albumin 2.6 g/dL (3.9-5) L 06/19/17 04:27 Albumin/Globulin Ratio 1.4 % 06/19/17 04:27
[2017-06-20] MEDS: TYLENOL PO PRN (21:30)
[2017-06-21] MEDS: D5NS 1,000 ML IV SCH ×2 (06:01→20:04)
[2017-06-21] MEDS: MERREM 1,000 MG in NACL 0.9% 100 ML IV SCH ×2 (10:38→22:31)
[2017-06-21] MEDS: PLAVIX PO SCH (10:39)
[2017-06-21] MEDS: PEPCID PO SCH (10:39)
[2017-06-21] MEDS: NORVASC PO SCH (10:39)
--- NOTE | 2017-06-21 10:56 | Progress Note ---
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 * Wound cx + E coli, ESBL Proteus, MSSA * started merropenem, stopped Vancomyin * PICCWound cx + E coli, ESBL Proteus, MSSA * Placed Wound vac placement. 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 * Fall precautions Flaccid right upper extremity-right hemiparesis * No evidence of fracture * * Hypernatremia IV 1/2 NS DVT prophylxis with lovenox History Interval history: no cp, no sob, no vomiting, no agitation, no fever Hospitalist Physical - Physical exam Narrative exam: General appearance: Present: no acute distress, well-nourished - EENT Eyes: Present: PERRL, EOM intact ENT: hearing intact, clear oral mucosa, edentulous - Neck Neck: Present: supple, normal ROM - Respiratory Respiratory effort: normal Respiratory: bilateral: CTA - Cardiovascular Rhythm: regular Heart Sounds: Present: S1 & S2 - Extremities Extremities: no ischemia, No edema - Abdominal General gastrointestinal: soft, non-tender, non-distended -Integumentary Integumentary: Present: warm (stage 3 sacral ulcer, stage 2 proximal sacral ulcer, and eschar to left toes, unstageable) - Neurologic Neurologic: CNII-XII intact, right hemiparesis - Allied Health Allied health notes reviewed: nursing - Psychiatric Psychiatric: no intact judgment & insight (oriented to self only, pleasantly demented) - Constitutional Vitals: Temp Pulse Resp BP Pulse Ox 98.9 F 88 20 121/56 98 06/21/17 07:46 06/21/17 10:39 06/21/17 07:46 06/21/17 10:39 06/21/17 07:46 General appearance: Present: no acute distress, well-nourished Results - Labs CBC & Chem 7: 06/19/17 04:27 06/19/17 04:27 Labs: Laboratory Last Values WBC 6.3 K/mm3 (4.5-11.0) 06/19/17 04: RBC 2.73 M/mm3 (3.65-5.03) L 06/19/17 04:27 Hgb 8.8 gm/dl (10.1-14.3) L 06/19/17 04:27 Hct 25.6 % (30.3-42.9) L 06/19/17 04: MCV 94 fl (79-97) 06/19/17 04: MCH 32 pg (28-32) 06/19/17 04: MCHC 35 % (30-34) H 06/19/17 04: RDW 15.0 % (13.2-15.2) 06/19/17 04:27 Plt Count 171 K/mm3 (140-440) 06/19/17 04:27 Lymph % (Auto) 33.4 % (13.4-35.0) 06/19/17 04:27 [place] % (Auto) 10.5 % (0.0-7.3) H 06/19/17 04:27 Eos % (Auto) 2.3 % (0.0-4.3) 06/19/17 04: Baso % (Auto) 0.4 % (0.0-1.8) 06/19/17 04: Lymph # 2.1 K/mm3 (1.2-5.4) 06/19/17 04:27 [place] # 0.7 K/mm3 (0.0-0.8) 06/19/17 04:27 Eos # 0.1 K/mm3 (0.0-0.4) 06/19/17 04:27 Baso # 0.0 K/mm3 (0.0-0.1) 06/19/17 04:27 Seg Neutrophils % 53.4 % (40.0-70.0) 06/19/17 04:27 Seg Neutrophils # 3.3 K/mm3 (1.8-7.7) 06/19/17 04:27 Sodium 139 mmol/L (137-145) D 06/19/17 04:27 Potassium 3.9 mmol/L (3.6-5.0) 06/19/17 04:27 Chloride 107.4 mmol/L (98-107) H 06/19/17 04:27 Carbon Dioxide 28 mmol/L (22-30) 06/19/17 04:27 Anion Gap 8 mmol/L 06/19/17 04:27 BUN 11 mg/dL (7-17) 06/19/17 04:27 Creatinine 0.3 mg/dL (0.7-1.2) L 06/19/17 04:27 Estimated GFR > 60 ml/min 06/19/17 04:27 BUN/Creatinine Ratio 37 % 06/19/17 04:27 Glucose 122 mg/dL (65-100) H 06/19/17 04:27 POC Glucose 124 (70-105) H 06/21/17 06:11 Hemoglobin A1c 4.9 % (4-6) 06/15/17 Unknown Calcium 8.2 mg/dL (8.4-10.2) L 06/19/17 04:27 Total Bilirubin 0.20 mg/dL (0.1-1.2) 06/19/17 04:27 AST 17 units/L (5-40) 06/19/17 04:27 ALT 15 units/L (7-56) 06/19/17 04:27 Alkaline Phosphatase 55 units/L (35-129) 06/19/17 04:27 Total Protein 4.4 g/dL (6.3-8.2) L 06/19/17 04:27 Albumin 2.6 g/dL (3.9-5) L 06/19/17 04:27 Albumin/Globulin Ratio 1.4 % 06/19/17 04:27
[2017-06-22] MEDS: TYLENOL PO PRN (01:52)
[2017-06-22] MEDS: MERREM 1,000 MG in NACL 0.9% 100 ML IV SCH ×2 (09:53→22:12)
[2017-06-22] MEDS: PEPCID PO SCH (09:55)
[2017-06-22] MEDS: PLAVIX PO SCH (09:55)
[2017-06-22] MEDS: NORVASC PO SCH (09:55)
--- NOTE | 2017-06-22 10:02 | Discharge Summary ---
Providers - Providers Date of Admission: 06/15/17 18:51 Attending physician: ROSAMARIA MCGOWAN MD 06/15/17 22:16 Consult to Physician [CONS] Routine Consulting Provider: JENN SARAVIA Reason For Exam: Sacral decubitus ulcer Place consult to:: dr. shirley Notified:: yes Phone number called:: [phone] If yes, spoke with:: answering machine Time called:: 08:39 Comment:: vanita/ left message 06/15/17 22:21 Consult to Case Management [CONS] Routine Services Needed at Discharge: Home Health Services Supervisor Notified:: franci Time called:: 09:26 Comment:: vanita Consult to Dietitian/Nutrition [CONS] Routine Physician Instructions: Reason For Exam: pEG TUBE FEEDING Reason for Consult: Pt needs oral supplement Consult to Wound/ET Nurse [CONS] Routine Reason For Exam: wound eval 06/18/17 14:53 Speech Therapy Evaluation and Treat [CONS] Routine Reason For Exam: Eval for dysphagia and need for tube feeding. 06/19/17 16:16 Consult to Dietitian/Nutrition [CONS] Routine Physician Instructions: Assess nutrtn needs, initiate, modify, manage TF Reason For Exam: Reason for Consult: Write/Manage Tube Feeding Reason for Consult: Write/Manage Tube Feeding Primary care physician: LINDSEY SHAW Hospitalization Disposition: DC-30 STILL A PATIENT Core Measure Documentation - Palliative Care Palliative Care/ Comfort Measures: Not Applicable Exam - Constitutional Vitals: Temp Pulse Resp BP Pulse Ox 98.5 F 86 18 113/49 99 06/22/17 08:13 06/22/17 09:55 06/22/17 08:13 06/22/17 09:55 06/22/17 08:13 Plan Follow up with: LINDSEY SHAW MD [Primary Care Provider] - 7 Days JENN SARAVIA MD [Staff Physician] - 7 Days Prescriptions: Morphine Concentrate [Roxanol Concentrate] 10 mg PO Q6H PRN 3 Days oralsyr PRN Reason: Pain
[2017-06-22] MEDS: D5NS 1,000 ML IV SCH ×2 (11:13→22:12)
[2017-06-23] MEDS: PLAVIX PO SCH (09:28)
[2017-06-23] MEDS: PEPCID PO SCH (09:28)
[2017-06-23] MEDS: NORVASC PO SCH (09:28)
[2017-06-23] MEDS: MERREM 1,000 MG in NACL 0.9% 100 ML IV SCH ×2 (09:34→22:50)
[2017-06-23] MEDS: D5NS 1,000 ML IV SCH (09:39)
--- NOTE | 2017-06-23 12:51 | Progress Note ---
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 * Wound cx + E coli, ESBL Proteus, MSSA * started merropenem, stopped Vancomyin * PICCWound cx + E coli, ESBL Proteus, MSSA * Placed Wound vac placement. 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 * Fall precautions Flaccid right upper extremity-right hemiparesis * No evidence of fracture * * Hypernatremia IV 1/2 NS DVT prophylxis with lovenox History Interval history: no cp, no sob, no vomiting, no agitation, no fever Hospitalist Physical - Physical exam Narrative exam: General appearance: Present: no acute distress, well-nourished - EENT Eyes: Present: PERRL, EOM intact ENT: hearing intact, clear oral mucosa, edentulous - Neck Neck: Present: supple, normal ROM - Respiratory Respiratory effort: normal Respiratory: bilateral: CTA - Cardiovascular Rhythm: regular Heart Sounds: Present: S1 & S2 - Extremities Extremities: no ischemia, No edema - Abdominal General gastrointestinal: soft, non-tender, non-distended -Integumentary Integumentary: Present: warm (stage 3 sacral ulcer, stage 2 proximal sacral ulcer, and eschar to left toes, unstageable) - Neurologic Neurologic: CNII-XII intact, right hemiparesis - Allied Health Allied health notes reviewed: nursing - Psychiatric Psychiatric: no intact judgment & insight (oriented to self only, pleasantly demented) - Constitutional Vitals: Temp Pulse Resp BP Pulse Ox 98.6 F 81 20 137/66 98 06/23/17 07:13 06/23/17 09:28 06/23/17 07:13 06/23/17 09:28 06/23/17 07:13 General appearance: Present: no acute distress, well-nourished Results - Labs CBC & Chem 7: 06/19/17 04:27 06/19/17 04:27 Labs: Laboratory Last Values WBC 6.3 K/mm3 (4.5-11.0) 06/19/17 04: RBC 2.73 M/mm3 (3.65-5.03) L 06/19/17 04:27 Hgb 8.8 gm/dl (10.1-14.3) L 06/19/17 04:27 Hct 25.6 % (30.3-42.9) L 06/19/17 04: MCV 94 fl (79-97) 06/19/17 04: MCH 32 pg (28-32) 06/19/17 04: MCHC 35 % (30-34) H 06/19/17 04: RDW 15.0 % (13.2-15.2) 06/19/17 04:27 Plt Count 171 K/mm3 (140-440) 06/19/17 04:27 Lymph % (Auto) 33.4 % (13.4-35.0) 06/19/17 04:27 [place] % (Auto) 10.5 % (0.0-7.3) H 06/19/17 04:27 Eos % (Auto) 2.3 % (0.0-4.3) 06/19/17 04: Baso % (Auto) 0.4 % (0.0-1.8) 06/19/17 04: Lymph # 2.1 K/mm3 (1.2-5.4) 06/19/17 04:27 [place] # 0.7 K/mm3 (0.0-0.8) 06/19/17 04:27 Eos # 0.1 K/mm3 (0.0-0.4) 06/19/17 04:27 Baso # 0.0 K/mm3 (0.0-0.1) 06/19/17 04:27 Seg Neutrophils % 53.4 % (40.0-70.0) 06/19/17 04:27 Seg Neutrophils # 3.3 K/mm3 (1.8-7.7) 06/19/17 04:27 Sodium 139 mmol/L (137-145) D 06/19/17 04:27 Potassium 3.9 mmol/L (3.6-5.0) 06/19/17 04:27 Chloride 107.4 mmol/L (98-107) H 06/19/17 04:27 Carbon Dioxide 28 mmol/L (22-30) 06/19/17 04:27 Anion Gap 8 mmol/L 06/19/17 04:27 BUN 11 mg/dL (7-17) 06/19/17 04:27 Creatinine 0.3 mg/dL (0.7-1.2) L 06/19/17 04:27 Estimated GFR > 60 ml/min 06/19/17 04:27 BUN/Creatinine Ratio 37 % 06/19/17 04:27 Glucose 122 mg/dL (65-100) H 06/19/17 04:27 POC Glucose 100 (70-105) 06/23/17 11:44 Hemoglobin A1c 4.9 % (4-6) 06/15/17 Unknown Calcium 8.2 mg/dL (8.4-10.2) L 06/19/17 04:27 Total Bilirubin 0.20 mg/dL (0.1-1.2) 06/19/17 04:27 AST 17 units/L (5-40) 06/19/17 04:27 ALT 15 units/L (7-56) 06/19/17 04:27 Alkaline Phosphatase 55 units/L (35-129) 06/19/17 04:27 Total Protein 4.4 g/dL (6.3-8.2) L 06/19/17 04:27 Albumin 2.6 g/dL (3.9-5) L 06/19/17 04:27 Albumin/Globulin Ratio 1.4 % 06/19/17 04:27
[2017-06-24] MEDS: D5NS 1,000 ML IV SCH ×2 (03:00→14:12)
[2017-06-24] MEDS: MERREM 1,000 MG in NACL 0.9% 100 ML IV SCH ×3 (09:45→23:20)
[2017-06-24] MEDS: NORVASC PO SCH (09:45)
[2017-06-24] MEDS: PLAVIX PO SCH (09:49)
[2017-06-24] MEDS: PEPCID PO SCH (09:49)
--- NOTE | 2017-06-24 12:11 | Progress Note ---
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 * Wound cx + E coli, ESBL Proteus, MSSA * started merropenem, will dc on ertapenam, continue till 07/23 * PICCWound cx + E coli, ESBL Proteus, MSSA * Placed Wound vac placement. 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 * Fall precautions Flaccid right upper extremity-right hemiparesis * No evidence of fracture * * Hypernatremia IV 1/2 NS DVT prophylxis with lovenox History Interval history: no cp, no sob, no vomiting, no agitation, no fever Hospitalist Physical - Physical exam Narrative exam: General appearance: Present: no acute distress, well-nourished - EENT Eyes: Present: PERRL, EOM intact ENT: hearing intact, clear oral mucosa, edentulous - Neck Neck: Present: supple, normal ROM - Respiratory Respiratory effort: normal Respiratory: bilateral: CTA - Cardiovascular Rhythm: regular Heart Sounds: Present: S1 & S2 - Extremities Extremities: no ischemia, No edema - Abdominal General gastrointestinal: soft, non-tender, non-distended -Integumentary Integumentary: Present: warm (stage 3 sacral ulcer, stage 2 proximal sacral ulcer, and eschar to left toes, unstageable) - Neurologic Neurologic: CNII-XII intact, right hemiparesis - Allied Health Allied health notes reviewed: nursing - Psychiatric Psychiatric: no intact judgment & insight (oriented to self only, pleasantly demented) - Constitutional Vitals: Temp Pulse Resp BP Pulse Ox 99.2 F 82 20 119/42 97 06/24/17 07:38 06/24/17 09:45 06/24/17 07:42 06/24/17 09:45 06/24/17 07:42 General appearance: Present: no acute distress, well-nourished Results - Labs CBC & Chem 7: 06/19/17 04:27 06/19/17 04:27 Labs: Laboratory Last Values WBC 6.3 K/mm3 (4.5-11.0) 06/19/17 04:27 RBC 2.73 M/mm3 (3.65-5.03) L 06/19/17 04:27 Hgb 8.8 gm/dl (10.1-14.3) L 06/19/17 04:27 Hct 25.6 % (30.3-42.9) L 06/19/17 04:27 MCV 94 fl (79-97) 06/19/17 04: MCH 32 pg (28-32) 06/19/17 04: MCHC 35 % (30-34) H 06/19/17 04:27 RDW 15.0 % (13.2-15.2) 06/19/17 04:27 Plt Count 171 K/mm3 (140-440) 06/19/17 04:27 Lymph % (Auto) 33.4 % (13.4-35.0) 06/19/17 04:27 [place] % (Auto) 10.5 % (0.0-7.3) H 06/19/17 04:27 Eos % (Auto) 2.3 % (0.0-4.3) 06/19/17 04:27 Baso % (Auto) 0.4 % (0.0-1.8) 06/19/17 04:27 Lymph # 2.1 K/mm3 (1.2-5.4) 06/19/17 04:27 [place] # 0.7 K/mm3 (0.0-0.8) 06/19/17 04:27 Eos # 0.1 K/mm3 (0.0-0.4) 06/19/17 04:27 Baso # 0.0 K/mm3 (0.0-0.1) 06/19/17 04:27 Seg Neutrophils % 53.4 % (40.0-70.0) 06/19/17 04:27 Seg Neutrophils # 3.3 K/mm3 (1.8-7.7) 06/19/17 04:27 Sodium 139 mmol/L (137-145) D 06/19/17 04:27 Potassium 3.9 mmol/L (3.6-5.0) 06/19/17 04:27 Chloride 107.4 mmol/L (98-107) H 06/19/17 04:27 Carbon Dioxide 28 mmol/L (22-30) 06/19/17 04:27 Anion Gap 8 mmol/L 06/19/17 04:27 BUN 11 mg/dL (7-17) 06/19/17 04:27 Creatinine 0.3 mg/dL (0.7-1.2) L 06/19/17 04:27 Estimated GFR > 60 ml/min 06/19/17 04:27 BUN/Creatinine Ratio 37 % 06/19/17 04:27 Glucose 122 mg/dL (65-100) H 06/19/17 04:27 POC Glucose 123 (70-105) H 06/24/17 11:36 Hemoglobin A1c 4.9 % (4-6) 06/15/17 Unknown Calcium 8.2 mg/dL (8.4-10.2) L 06/19/17 04:27 Total Bilirubin 0.20 mg/dL (0.1-1.2) 06/19/17 04:27 AST 17 units/L (5-40) 06/19/17 04:27 ALT 15 units/L (7-56) 06/19/17 04:27 Alkaline Phosphatase 55 units/L (35-129) 06/19/17 04:27 Total Protein 4.4 g/dL (6.3-8.2) L 06/19/17 04:27 Albumin 2.6 g/dL (3.9-5) L 06/19/17 04:27 Albumin/Globulin Ratio 1.4 % 06/19/17 04:27
[2017-06-24] MEDS: MORPHINE IV PRN (20:33)
[2017-06-25] MEDS: D5NS 1,000 ML IV SCH (05:13)
[2017-06-25] MEDS: MERREM 1,000 MG in NACL 0.9% 100 ML IV SCH (09:23)
[2017-06-25] MEDS: PEPCID PO SCH (09:29)
[2017-06-25] MEDS: NORVASC PO SCH (09:29)
[2017-06-25] MEDS: PLAVIX PO SCH (09:29)
[2017-06-25 09:31] VITALS: BP 125/53
== END 2017-06-25 11:00 | disposition home health service (06) | DRG 592 ==
LOC: 2B-ACE 18:29 → UNDOADMIN 18:29 → 2B-ACE 18:51
PROVIDERS: ADMIT Internal Medicine; ATTEND Internal Medicine
DX: L89.154 Pressure ulcer of sacral region, stage 4 (principal); E43 Unspecified severe protein-calorie malnutrition; N39.0 Urinary tract infection, site not specified; Z68.1 Body mass index [BMI] 19.9 or less, adult; M86.9 Osteomyelitis, unspecified; E87.0 Hyperosmolality and hypernatremia; I69.951 Hemiplegia and hemiparesis following unspecified cerebrovascular disease affecting right dominant side; L98.429 Non-pressure chronic ulcer of back with unspecified severity; E78.5 Hyperlipidemia, unspecified; E87.6 Hypokalemia; R13.12 Dysphagia, oropharyngeal phase; B96.20 Unspecified Escherichia coli [E. coli] as the cause of diseases classified elsewhere; I10 Essential (primary) hypertension; F03.90 Unspecified dementia, unspecified severity, without behavioral disturbance, psychotic disturbance, mood disturbance, and anxiety; Z89.611 Acquired absence of right leg above knee; Z88.0 Allergy status to penicillin
CPT/HCPCS: 36415; 80053; 82962; 83036; 85025; G8996-GN; G8997-GN; J2185; J2270; J7042